=== PATIENT | male | born 1950 | race Caucasian/White ===

== ENCOUNTER 2018-10-08 15:11 | Emergency (ER) | payer MEDICARE, OTHER ==
[~2018-10-08] VITALS: Ht 182.9 cm; Wt 129.1 kg
[2018-10-08 15:17] VITALS: BP 175/88; PULSE 92; RESP 18; Ht 182.9 cm; Wt 129.1 kg
[2018-10-08] MEDS ORDERED: ACETAMINOPHEN 650MG/20.3ML CUP PO STA (16:10)
[2018-10-08] MEDS ORDERED: LIDOCAINE 1% (MDV) 20 ML INJ SC ONE (16:30)
--- NOTE | 2018-10-08 16:39 | ERD ---
ER Documentation Chief Complaint Chief Complaint LEFT INDEX FINGER LACERATION FROM A KNIFE. BLEEDING CONTROLLED. HPI 68-year-old male presents the left index finger laceration cut with a sensitized paper tester today. Tetanus is up-to-date. He has no restricted range of motion weakness. The laceration is through the tip of the nail and the tip of the left index finger. ROS All systems reviewed and are negative except as per history of present illness. Allergies Allergies: Coded Allergies: No Known Allergy (Verified Allergy, Unknown, 12/07/07) PMhx/Soc Hx Alcohol Use: No Hx Substance Use: No Hx Tobacco Use: Yes Smoking Status: Current some day smoker FmHx Family History: No diabetes, No coronary disease, No other Physical Exam Vitals Vital Signs Date Temp Pulse Resp B/P (MAP) Pulse Ox O2 O2 Flow FiO2 Time Delivery Rate 10/08/18 98.3 92 18 175/88 99 15:17 (117) Physical Exam Const: No acute distress Head: Atraumatic Eyes: Normal Conjunctiva ENT: Normal External Ears, Nose and Mouth. Neck: Full range of motion. No meningismus. Resp: Clear to auscultation bilaterally Cardio: Regular rate and rhythm, no murmurs Abd: Soft, non tender, non distended. Normal bowel sounds Skin: No petechiae or rashes Back: No midline or flank tenderness Ext: No cyanosis, or edema. Approximately 1 cm laceration through the tip of the left index finger diagonally through the nail and lateral to the nail. No appreciable tendon or neurologic deficits. No bony tenderness or deformities. Neur: Awake and alert Psych: Normal Mood and Affect Results 24 hrs Current Medications Medications Dose Sig/Alan Start Time Status Last (Trade) Ordered Route PRN Stop Time Admin Dose Reason Admin Lidocaine 20 ml ONCE ONCE 10/08/18 DC (Xylocaine SC 16:30 1% (Mdv) 20 10/08/18 16:31 ml) 650 mg ONCE STAT 10/08/18 DC 10/08/18 Acetaminophen PO 16:10 16:20 (Tylenol 10/08/18 16:11 Liquid) Procedures/MDM Patient presents with left index finger laceration. Mechanism does not suggest fracture as it involves only the tip of the tuft of the finger. No evidence of neurologic or tendon deficit. No signs of infection. Procedure note-left index finger was irrigated copiously with normal saline. 2 cc lidocaine was used to perform a digital block. Anesthesia was obtained. Four 4-0 nylon sutures were used to approximate the wound. Patient tolerated procedure well and wound was dressed. Was placed in left index middle splint for protection and was neurovascular intact after splint. Discharged home with recommendations for 2-day recheck in 7 to 10 days suture removal. Patient advised to return sooner for fevers, redness, new or worsening symptoms. Departure Diagnosis: Primary Impression: Laceration Condition: Stable Patient Instructions: Laceration, Hand Referrals: DOCTOR,NOT ON STAFF (PCP) Additional Instructions: Recommend 2 days wound check and 7 to 10 days suture removal. Recheck sooner for redness, fevers, new worsening symptoms. Recommend Tylenol every 4 hours for pain. NANCY HANSON MD October 08, 2018 16:39
== END 2018-10-08 17:15 | disposition home or self-care (01) ==
LOC: FTE 15:11
DX: S61.311A Laceration without foreign body of left index finger with damage to nail, initial encounter (principal); W27.5XXA Contact with paper-cutter, initial encounter; Y92.9 Unspecified place or not applicable

== ENCOUNTER 2018-10-10 15:10 | Emergency (ER) | payer MEDICARE, OTHER ==
[~2018-10-10] VITALS: Ht 180.3 cm; Wt 128.0 kg
[2018-10-10 15:12] VITALS: BP 142/79; PULSE 78; RESP 16; Ht 180.3 cm; Wt 128.0 kg
--- NOTE | 2018-10-10 15:36 | ERD ---
ER Documentation Chief Complaint Chief Complaint for recheck on lt index finger injury HPI 68-year-old male presents for 3-day recheck of the left index finger tip laceration sutured by me. He has no complaints. He has no history of discharge, bleeding or fever. ROS All systems reviewed and are negative except as per history of present illness. Allergies Allergies: Coded Allergies: No Known Allergy (Verified Allergy, Unknown, 12/07/07) PMhx/Soc Hx Alcohol Use: No Hx Substance Use: No Hx Tobacco Use: Yes FmHx Family History: No diabetes, No coronary disease, No other Physical Exam Vitals Vital Signs Date Temp Pulse Resp B/P (MAP) Pulse Ox O2 O2 Flow FiO2 Time Delivery Rate 10/10/18 98.1 78 16 142/79 98 15:12 (100) Physical Exam Const: No acute distress Head: Atraumatic Eyes: Normal Conjunctiva ENT: Normal External Ears, Nose and Mouth. Neck: Full range of motion. No meningismus. Resp: Clear to auscultation bilaterally Cardio: Regular rate and rhythm, no murmurs Abd: Soft, non tender, non distended. Normal bowel sounds Skin: No petechiae or rashes Back: No midline or flank tenderness Ext: No cyanosis, or edema. Healing laceration on the tip of the left index finger without erythema, bleeding or discharge. Neur: Awake and alert Psych: Normal Mood and Affect Procedures/MDM Patient presents with a satisfactorily healing left index finger laceration. Wound was redressed. Patient will be discharged home with recommendations for 1 week suture removal, sooner for redness, fevers, new or worsening symptoms. The patient was stable with no new complaints during the ER course. Clinically, there is no current evidence to suggest meningitis, sepsis, acute abdomen, pneumonia, stroke, acute coronary syndrome, pulmonary embolism, aortic dissection or any other emergent condition appearing to require further evaluation or hospitalization. Patient counseled regarding my diagnostic impression and care plan. Prior to discharge all questions answered. Pt agrees with treatment plan and understands strict return precautions. Pt is instructed to follow up with primary care provider within 24-48 hours. Precautionary instructions provided including instructions to return to the ER if not im proving or for any worsening or changing symptoms or concerns. Disclaimer: Inadvertent spelling and grammatical errors are likely due to EHR/dictation software use and do not reflect on the overall quality of patient care. Also, please note that the electronic time recorded on this note does not necessarily reflect the actual time of the patient encounter. Departure Diagnosis: Primary Impression: Encounter for wound re-check Condition: Stable Patient Instructions: Wound Check, Lac F/U (No Infection) Additional Instructions: Suture removal approximately 1 week. Recheck sooner for redness, fevers, new symptoms. NANCY HANSON MD October 10, 2018 15:36
== END 2018-10-11 13:13 | disposition home or self-care (01) ==
LOC: E/R 15:10
DX: Z48.01 Encounter for change or removal of surgical wound dressing (principal)
CPT/HCPCS: 99281

== ENCOUNTER 2018-10-18 12:07 | Emergency (ER) | payer MEDICARE, OTHER ==
[~2018-10-18] VITALS: Wt 130.8 kg
[2018-10-18 12:13] VITALS: BP 150/82; PULSE 81; RESP 18
--- NOTE | 2018-10-18 13:38 | ERD ---
ER Documentation Chief Complaint Chief Complaint SUTURE REMOVAL ON LEFT INDEX FINGER HPI 68-year-old male, previously healthy, right-handed, presents to the emergency department, for suture removal of the left index finger. The laceration was repaired 10 days ago. The patient refers feeling fine, no distal weakness, numbness or tingling, adequate pain management, no fever, no local erythema. ROS All systems reviewed and are negative except as per history of present illness. Allergies Allergies: Coded Allergies: No Known Allergy (Verified Allergy, Unknown, 12/07/07) PMhx/Soc Medical and Surgical Hx: pt denies Medical Hx, pt denies Surgical Hx Hx Alcohol Use: No Hx Substance Use: No Hx Tobacco Use: Yes Smoking Status: Never smoker FmHx Family History: No diabetes, No coronary disease Physical Exam Vitals Vital Signs Date Temp Pulse Resp B/P (MAP) Pulse Ox O2 O2 Flow FiO2 Time Delivery Rate 10/18/18 98.1 81 18 150/82 93 12:13 (104) Physical Exam Patient alert, oriented, vital signs stable. HEAD: Normocephalic, atraumatic. EYES: PERRLA, EOMI, Sclera and conjunctiva appear normal. NOSE: Clear and patent nostrils. EARS: Canals clear, tympanic membranes WNL. MOUTH: normal lips and tongue, no oral lesions. THROAT: Normal oropharynx, no tonsillar exudates. NECK: Supple, No lymphadenopathy. Full ROM without pain or tenderness. HEART: RRR, no rubs, murmurs, clicks or gallops. LUNGS: Clear to auscultation. ABDOMEN: Soft, non-tender without masses or hepatosplenomegaly. EXTREMITIES: No edema bilaterally. Left index finger: Finger tip laceration repaired with 4 stitches, incision clean, dry and intact, no evidence of infection. BACK: Full ROM, no deformity, normal back exam NEURO: Cranial nerves grossly intact, no motor or sensory deficit SKIN: No rashes, no petechia. Procedures/MDM Status post laceration repair 10 days ago. Adequate pain control, no fever, no chills, good compliance with medications no side effects. The patient was evaluated for infection and neurovascular compromise. The wound was clean and irrigated with normal saline, dimple removed without complications and dressing applied. Patient is stable, with adequate healing process, okay to discharge home. The patient was instructed to follow up with the primary care provider in the next 48h. If symptoms persist, worsen or new symptoms develop, then patient should return to the ED immediately. Instructions explained and given directly by me to the patient with acknowledgment and demonstrated understanding. Disclaimer: Inadvertent spelling and grammatical errors are likely due to EHR/dictation software use and do not reflect on the overall quality of patient care. Also, please note that the electronic time recorded on this note does not necessarily reflect the actual time of the patient encounter. Departure Diagnosis: Primary Impression: Encounter for removal of sutures Condition: Stable Patient Instructions: Suture Removal, No Complication Additional Instructions: Thank you very much for allowing us to participate in your care. Your health and safety is our top priority at [facility]. Call your primary care doctor TOMORROW for an appointment during the next 2-4 days and bring all the information provided. Have prescriptions filled and follow precisely the directions on the label. If the symptoms get worse and your provider is unavailable, return to the Emergency Department immediately. JERRICA LEMONS MD October 18, 2018 13:38
== END 2018-10-18 13:49 | disposition home or self-care (01) ==
LOC: FTE 12:07
DX: Z48.02 Encounter for removal of sutures (principal)
CPT/HCPCS: 99281